=== PATIENT | female | born 1975 | race Hispanic/Latino ===

== ENCOUNTER 2019-10-25 20:51 | Emergency (ER) | payer OTHER ==
[2019-10-25] MEDS ORDERED: LEVOFLOXACIN 500 MG/D5W 100 ML 100 ML ONE (21:19)
[2019-10-25] MEDS ORDERED: DEXAMETHASONE SOD PHOSPHATE 4 MG/ML 1ML VIAL ONE (21:19)
[2019-10-25] MEDS ORDERED: SODIUM CHLORIDE 0.9% 1000ML 1,000 ML IV ONE (21:20)
[2019-10-25] MEDS ORDERED: KETOROLAC TROMETHAMINE 30MG/ML ONE (21:20)
[2019-10-25] MEDS ORDERED: IPRATROPIUM/ALBUTEROL SULFATE 3 ML SOLUTION IH ONE (21:29)
[2019-10-25 21:40] LABS: BASOPHILS % (AUTO) 0.2 % (0.0-5.0); EOSINOPHILS % (AUTO) 6.7 % (0.0-8.0); HEMATOCRIT 34.5 % (36-48); LYMPHOCYTES % (AUTO) 16.9 % (21.0-51.0); MEAN CORPUSCULAR HEMOGLOBIN 28.6 pg (27.0-33.0); MEAN CORPUSCULAR VOLUME 86.7 fL (79-99); MONOCYTES % (AUTO) 4.5 % (3.0-13.0); NEUTROPHILS % (AUTO) 71.4 % (40.0-77.0); PLATELET COUNT (AUTO) 427 K/uL (130-400); RED BLOOD CELL COUNT(AUTO) 3.98 MIL/uL (4.00-5.50); RED CELL DISTRIBUTION WIDTH 14.5 % (11.0-15.5); WHITE BLOOD COUNT (AUTO) 12.8 K/uL (4.8-10.8)
[2019-10-25 21:51] LABS: CREATININE 0.6 mg/dL (0.5-1.5); POTASSIUM 3.1 mmol/L (3.5-5.1)
[2019-10-25 21:55] LABS: ALBUMIN 3.5 g/dL (3.5-5.0); BILIRUBIN,DIRECT 0.1 mg/dL (0.0-0.3); BILIRUBIN,TOTAL 0.3 mg/dL (0.2-1.0); TOTAL PROTEIN, SERUM 7.1 g/dL (6.0-8.3)
== END 2019-10-26 00:34 | disposition home or self-care (01) ==
LOC: EDH 20:51
DX: J20.9 Acute bronchitis, unspecified (principal); E03.9 Hypothyroidism, unspecified; Z88.0 Allergy status to penicillin; Z98.51 Tubal ligation status
CPT/HCPCS: 36415; 71046; 80048; 80076; 82550; 84484; 85025; 87804 ×2; 93005; 94640; 96365; 96375; 99285; J1100; J1885; J1956; J7030